=== PATIENT | female | born 1995 | race Caucasian/White ===

== ENCOUNTER → 2021-10-14 | Outpatient (CLI) | payer OTHER | LOC: M LAB 15:47 | DX: S61.212D Laceration without foreign body of right middle finger without damage to nail, subsequent encounter (principal); S61.214D Laceration without foreign body of right ring finger without damage to nail, subsequent encounter; S61.216D Laceration without foreign body of right little finger without damage to nail, subsequent encounter; X58.XXXD Exposure to other specified factors, subsequent encounter; Y92.9 Unspecified place or not applicable ==